=== PATIENT | male | born 1955 | race Caucasian/White ===

== ENCOUNTER 2017-05-12 11:06 | Day surgery (SDC) | payer OTHER ==
[2017-05-12] VITALS (15 sets, daily range): BP systolic 121–160; BP diastolic 58–82; PULSE 66–90; RESP 10–18; Ht 172.7 cm; Wt 90.4 kg
[~2017-05-12] VITALS: Ht 172.7 cm; Wt 90.4 kg
[2017-05-12] MEDS ORDERED: BISO5TAB21 PO (11:44)
[2017-05-12] MEDS ORDERED: ATOR10TA65 PO (11:44)
[2017-05-12] MEDS ORDERED: GLYB1TAB3 PO (11:46)
[2017-05-12] MEDS ORDERED: INDA1.25 PO (11:48)
[2017-05-12] MEDS ORDERED: SITA100T8 PO (11:48)
[2017-05-12] MEDS ORDERED: TAMS0.4C2 PO (11:49)
[2017-05-12] MEDS ORDERED: PANT40TA3 PO (11:49)
[2017-05-12] MEDS ORDERED: BUPIVACAINE 0.25% (MPF) 30 ML INJ ONE (12:28)
[2017-05-12] MEDS ORDERED: PROPOFOL 20 ML ONE (12:32)
[2017-05-12] MEDS ORDERED: FENTAnyl 50 MCG/ML VIAL ONE (12:32)
[2017-05-12] MEDS ORDERED: SUCCINYLCHOLINE CHLORIDE 100 MG/5 ML SYG IV ONE (12:32)
[2017-05-12] MEDS ORDERED: ROCURONIUM 50 MG INJ ONE (12:32)
[2017-05-12] MEDS ORDERED: ONDANSETRON 4 MG INJ ONE (12:33)
[2017-05-12] MEDS ORDERED: CEFAZOLIN 1 GM INJ ONE (12:33)
[2017-05-12] MEDS ORDERED: KETOROLAC 30 MG INJ ONE (12:33)
[2017-05-12] MEDS ORDERED: BUPIVACAINE 0.25% (MPF) 30 ML INJ INJ ONE (12:45)
[2017-05-12] MEDS ORDERED: POLYMYXIN/BACITRACIN 1L IRRIG IRR ONE (12:45)
[2017-05-12] MEDS ORDERED: hydrALAzine 20 MG INJ IV PRN (13:30)
[2017-05-12] MEDS ORDERED: LABETALOL HCL 20MG INJ IV PRN (13:30)
[2017-05-12] MEDS ORDERED: FENTAnyl 50 MCG/ML VIAL IV PRN ×2 (13:30)
[2017-05-12] MEDS ORDERED: ONDANSETRON 4 MG INJ IV PRN (13:30)
[2017-05-12] MEDS ORDERED: HYDROmorphONE (0.2 MG/ML) 10ML SYG IV PRN ×3 (13:30)
[2017-05-12] MEDS ORDERED: MEPERIDINE 25 MG INJ IV PRN (13:30)
--- NOTE | 2017-05-12 14:16 | OPR ---
Date/Time of Note Date/Time of Note DATE: 05/12/17 TIME: 14:14 Operative Report Procedure Date: May 12, 2017 Preoperative Diagnosis incarcerated ventral hernia Postoperative Diagnosis same Operation/Procedure Performed 1. laparoscopic ventral hernia repair 2. intraabdominal implantation of 10x15 cm ventralight ST mesh 3. therapeutic injection of subcutaneous local anesthesia Surgeon see signature line Sole Trimmer none Anesthesia Type: general Estimated Blood Loss: minimal Transfusion none Specimen none Grafts/Implants none Complications none Pt Condition Post Procedure: stable Indications This is a 62-year-old male with an incarcerated ventral hernia. He requests surgical repair. Risks alternatives benefits and percent were discussed the patient. Patient expresses understanding and consents to the operation. Procedure Description Patient taken to the OR and prepped and draped in usual sterile fashion. Surgical timeout was performed. IV antibiotics given. Left upper quadrant 5 mm transverse incision is made with a 15 blade. 5 mm optical trocar was used for optical entry. Pneumoperitoneum is established. Left flank 12 mm optical trocar was placed under direct visualization. Left lower quadrant 5 mm optical trocar was introduced under direct visualization. Upon initial inspection there is incarcerated hernia. This is reduced and excised using laparoscopic harmonic braden. The contents were extracted through the 12 mm port. The hernia defect is covered as underlay with 4-5 cm of coverage in all directions with ventral light ST 10 x 15 cm. This is secured in place with secure strap. There is good hemostasis. Ports removed under direct visualization. Skin was closed using skin ryan. Therapeutic contains local anesthesia was injected throughout the incision site. Dressings were applied. Viviana MUÑOZ May 12, 2017 14:16
[2017-05-12] MEDS ORDERED: HYDROCODONE/APAP (5/325) TAB PO ONE (14:30)
== END 2017-05-12 15:30 | disposition home or self-care (01) ==
LOC: SDS 11:06
PROVIDERS: ATTEND Surgery
DX: K43.9 Ventral hernia without obstruction or gangrene (principal)
CPT/HCPCS: 49653; 82962; C1781; J0690; J1885; J2175; J2405; J3010; Z7512; Z7610